=== PATIENT | male | born 1945 | race Caucasian/White ===

== ENCOUNTER 2021-01-09 10:20 | Emergency (ER) | payer MEDICARE ==
[2021-01-09 10:26] VITALS: RESP 18
[2021-01-09] MEDS ORDERED: SODIUM CHLORIDE 0.9% 500 ML 500 ML IV ONE (10:37)
[2021-01-09] MEDS ORDERED: ONDANSETRON 4 MG/2 ML VIAL IVP STA (10:37)
--- NOTE | 2021-01-09 10:40 | ED ---
Nausea/Vomiting/Diarrhea HPI - General Chief complaint: Nausea/Vomiting/Diarrhea Stated complaint: Nauseau Time Seen by Provider: 01/09/21 10:28 Source: patient, family Mode of arrival: ambulatory Limitations: no limitations - History of Present Illness Initial comments: 75-year-old male who does not endorse past medical history aside from a hernia repair presented to the emergency department today for chief complaint of nausea and generalized weakness and soem nasal congestion x 3-4 days. Patient states that for the past 3-4 days since Wednesday he has had some nausea and decreased appetite overall has felt weak and has had some nasal congestion. He denies chest pain shortness of breath chest pressure diaphoresis and jaw pain arm pain and paresthesias. He dnies leg swelling, blood in stool or vomit. Pt states he vomited Wednesday ans states that it was mostly "phlegm" he denies abdominal pain. Patient appears well nontoxic on arrival in no distress. - Related Data Home Medications Medication Instructions Recorded Confirmed Ibuprofen [Motrin Ib] 600 mg PO Q8H PRN 01/09/21 01/09/21 Previous Rx's Medication Instructions Recorded Ondansetron Odt [Zofran Odt] 4 mg PO Q8HR PRN 7 Days #21 tab 01/09/21 Allergies Allergy/AdvReac Type Severity Reaction Status Date / Time venom-wasp [wasp venom] Allergy Unknown Verified 01/09/21 11:15 Review of Systems ROS Statement: Those systems with pertinent positive or pertinent negative responses have been documented in the HPI. ROS Other: All systems not noted in ROS Statement are negative. Past Medical History Past Medical History: No Reported History History of Any Multi-Drug Resistant Organisms: None Reported Past Surgical History: Hernia Repair Past Psychological History: No Psychological Hx Reported Smoking Status: Never smoker Past Alcohol Use History: None Reported Past Drug Use History: None Reported General Exam - General Exam Comments Initial Comments: General: The patient is awake and alert, in no distress Eye: Pupils are equal, round and reactive to light, extra-ocular movements are intact. No nystagmus. There is normal conjunctiva bilaterally. No signs of icterus. Ears, nose, mouth and throat: There are moist mucous membranes and no oral lesions. Some nasal congestion. Neck: The neck is supple, there is no tenderness or JVD. Cardiovascular: There is a regular rate and rhythm. No murmur, rub or gallop is appreciated. Respiratory: Lungs are clear to auscultation, respirations are non-labored, breath sounds are equal. No wheezes, stridor, rales, or rhonchi. Gastrointestinal: Soft, non-distended, non-tender abdomen without masses or organomegaly noted. There is no rebound or guarding present. Musculoskeletal: Normal ROM, no tenderness. Strength 5/5. Sensation intact. Radial and DP pulses equal bilaterally 2+. Neurological: A&O x 3. CN II-XII intact grossly, There are no obvious motor or sensory deficits. Coordination appears grossly intact. Speech is normal. Skin: Skin is warm and dry and no rashes or lesions are noted. No LE edema. Psychiatric: Cooperative, appropriate mood & affect, normal judgment. Limitations: no limitations Course Vital Signs 01/09/21 01/09/21 01/09/21 10: 12:41 14:55 Temperature 98.1 F 98.4 F 98.9 F Pulse Rate 76 67 82 Respiratory 18 18 18 Rate Blood Pressure 128/82 119/80 114/76 O2 Sat by Pulse 95 95 95 Oximetry Medical Decision Making - Medical Decision Making 75-year-old male presenting for nausea lack of appetite nasal congestion. He is: Positive. Labs are stable. He appears well nontoxic he does not endorse any chest pain or shortness of breath. Patient is high risk given his advanced age he would like to go forward with the monoclonal antibodies after we di scussed the risk versus benefit. Patient was provided information packet to review prior to the infusion. Patient was monitored 1 hour after the infusion with no signs of adverse side effects and patient was discharged appearing well. Dr Bain agreeable to care plan. - Lab Data Result diagrams: 01/09/21 10:46 01/09/21 10:46 Lab Results 01/09/21 01/09/21 01/09/21 Range/Units 10:46 10:46 10:46 WBC 5.9 (3.8-10.6) k/uL RBC 5.15 (4.30-5.90) m/uL Hgb 15.3 (13.0-17.5) gm/dL Hct 46.5 (39.0-53.0) % MCV 90.2 (80.0-100.0) fL MCH 29.7 (25.0-35.0) pg MCHC 32.9 (31.0-37.0) g/dL RDW 13.8 (11.5-15.5) % Plt Count 286 (150-450) k/uL MPV 7.7 Neutrophils % 74 % Lymphocytes % 15 % Monocytes % 10 % Eosinophils % 0 % Basophils % 0 % Neutrophils # 4.4 (1.3-7.7) k/uL Lymphocytes # 0.9 L (1.0-4.8) k/uL Monocytes # 0.6 (0-1.0) k/uL Eosinophils # 0.0 (0-0.7) k/uL Basophils # 0.0 (0-0.2) k/uL Sodium 140 (137-145) mmol/L Potassium 3.9 (3.5-5.1) mmol/L Chloride 111 H (98-107) mmol/L Carbon Dioxide 19 L (22-30) mmol/L Anion Gap 10 mmol/L BUN 15 (9-20) mg/dL Creatinine 0.85 (0.66-1.25) mg/dL Est GFR (CKD-EPI)AfAm >90 (>60 ml/min/1.73 sqM) Est GFR (CKD-EPI)NonAf 84 (>60 ml/min/1.73 sqM) Glucose 112 H (74-99) mg/dL Calcium 8.3 L (8.4-10.2) mg/dL Magnesium 1.9 (1.6-2.3) mg/dL Total Bilirubin 0.7 (0.2-1.3) mg/dL AST 55 (17-59) U/L ALT 33 (4-49) U/L Alkaline Phosphatase 90 (38-126) U/L Troponin I <0.012 (0.000-0.034) ng/mL Total Protein 7.2 (6.3-8.2) g/dL Albumin 3.8 (3.5-5.0) g/dL Coronavirus (PCR) (Not Detectd) 01/09/21 Range/Units 10:46 WBC (3.8-10.6) k/uL RBC (4.30-5.90) m/uL Hgb (13.0-17.5) gm/dL Hct (39.0-53.0) % MCV (80.0-100.0) fL MCH (25.0-35.0) pg MCHC (31.0-37.0) g/dL RDW (11.5-15.5) % Plt Count (150-450) k/uL MPV Neutrophils % % Lymphocytes % % Monocytes % % Eosinophils % % Basophils % % Neutrophils # (1.3-7.7) k/uL Lymphocytes # (1.0-4.8) k/uL Monocytes # (0-1.0) k/uL Eosinophils # (0-0.7) k/uL Basophils # (0-0.2) k/uL Sodium (137-145) mmol/L Potassium (3.5-5.1) mmol/L Chloride (98-107) mmol/L Carbon Dioxide (22-30) mmol/L Anion Gap mmol/L BUN (9-20) mg/dL Creatinine (0.66-1.25) mg/dL Est GFR (CKD-EPI)AfAm (>60 ml/min/1.73 sqM) Est GFR (CKD-EPI)NonAf (>60 ml/min/1.73 sqM) Glucose (74-99) mg/dL Calcium (8.4-10.2) mg/dL Magnesium (1.6-2.3) mg/dL Total Bilirubin (0.2-1.3) mg/dL AST (17-59) U/L ALT (4-49) U/L Alkaline Phosphatase (38-126) U/L Troponin I (0.000-0.034) ng/mL Total Protein (6.3-8.2) g/dL Albumin (3.5-5.0) g/dL Coronavirus (PCR) Detected A (Not Detectd) Disposition Clinical Impression: Nausea & vomiting, COVID-19, Nasal congestion Disposition: HOME SELF-CARE Condition: Good Instructions (If sedation given, give patient instructions): Coronavirus Disease 2019 (COVID-19) Additional Instructions: Please use medication as discussed. Please follow-up with family doctor in the next 2 days. Monitor respiratory status at home, if develop shortness of breath please return to the ER. Please return to emergency room if the symptoms increase or worsen or for any other concerns. Prescriptions: Ondansetron Odt [Zofran Odt] 4 mg PO Q8HR PRN 7 Days #21 tab PRN Reason: Nausea Is patient prescribed a controlled substance at d/c from ED?: No Referrals: Marely Angeles MD [Primary Care Provider] - 1-2 days Time of Disposition: 12:03
[2021-01-09 11:12] LABS: Basophils % (A) 0 %; Eosinophils % (A) 0 %; HCT 46.5 % (39.0-53.0); HGB 15.3 gm/dL (13.0-17.5); Lymphocytes # (A) 0.9 k/uL (1.0-4.8); Lymphocytes % (A) 15 %; MCH 29.7 pg (25.0-35.0); MCHC 32.9 g/dL (31.0-37.0); MCV 90.2 fL (80.0-100.0); Mean Platelet Volume 7.7; Monocytes # (A) 0.6 k/uL (0-1.0); Monocytes % (A) 10 %; Neutrophils # (A) 4.4 k/uL (1.3-7.7); Neutrophils % (A) 74 %; Platelet Count 286 k/uL (150-450); RBC 5.15 m/uL (4.30-5.90); RDW 13.8 % (11.5-15.5); WBC 5.9 k/uL (3.8-10.6)
[2021-01-09 11:33] LABS: ALT 33 U/L (4-49); AST 55 U/L (17-59); African American GFR (CKD) >90 (>60 ml/min/1.73 sqM); Albumin 3.8 g/dL (3.5-5.0); Alkaline Phosphatase 90 U/L (38-126); Anion Gap 10 mmol/L; Blood Urea Nitrogen 15 mg/dL (9-20); Calcium 8.3 mg/dL (8.4-10.2); Carbon Dioxide 19 mmol/L (22-30); Chloride 111 mmol/L (98-107); Glucose 112 mg/dL (74-99); Magnesium 1.9 mg/dL (1.6-2.3); Non-African American GFR(CKD) 84 (>60 ml/min/1.73 sqM); Potassium 3.9 mmol/L (3.5-5.1); Sodium 140 mmol/L (137-145); Total Bilirubin 0.7 mg/dL (0.2-1.3); Total Protein 7.2 g/dL (6.3-8.2)
[2021-01-09] MEDS ORDERED: BAMLANIVIMAB 700 MG in SODIUM CHLORIDE 0.9% 50 ML IVPB ONE (13:00)
[2021-01-09 14:56] VITALS: BP 114/76; PULSE 82; TEMP 98.9
== END 2021-01-09 14:55 | disposition home or self-care (01) ==
LOC: EC 10:20
DX: U07.1 COVID-19 (principal); R11.2 Nausea with vomiting, unspecified; R09.81 Nasal congestion
CPT/HCPCS: 99284; 36415; 93005; 80053; 83735; 84484; 85025; 87635; 96374; 96375; J2405; Q0239

== ENCOUNTER → 2021-05-14 | Day surgery (SDC) | payer MEDICARE ==
[2021-05-12 15:41] VITALS: BMI 30.7
[~2021-05-14] MED LIST: DEXAMETHASONE SOD PHOSPHATE 4 MG/ML 1 ML VIAL IV ONE; HYDROmorphone 0.5 MG/0.5 ML SYRINGE IVP PRN; LACTATED RINGERS 1,000 ML IV SCH; LIDOCAINE 1% (10MG/ML) FOR IV START INTRADERMA PRN; LIDOCAINE 1% INJ 10MG/ML (20 ML MDV) ONE; MIDAZOLAM 2 MG/2 ML VIAL IVP ONE; ONDANSETRON 4 MG/2 ML VIAL IVP ONE; ONDANSETRON 4 MG/2 ML VIAL IVP PRN; PROPOFOL 10 MG/ML 20 ML VIAL IV ONE; ROPIVACAINE 5 MG/ML 30 ML VIAL ONE; SUCCINYLCHOLINE CHLORIDE 100 MG/5 ML SYR IV ONE; ePHEDrine SULFATE/0.9% NACL/PF 50 MG/5 ML SYRINGE IV ONE; fentaNYL (PF) 50 MCG/ML 2 ML AMP ONE
--- NOTE | 2021-05-14 12:54 | P.OP ---
Date of Procedure: 05/14/21 Preoperative Diagnosis: 1. Displaced lateral malleolar fracture left ankle 2. Possible disruption syndesmosis left ankle Postoperative Diagnosis: 1. Displaced lateral malleolar fracture left ankle 2. Disruption of syndesmosis left ankle Procedure(s) Performed: 1. Open reduction with internal fixation of the left lateral malleolus 2. Open reduction and fixation of the syndesmosis left ankle Implants: Arthrex 6-hole lateral malleolar plate, Arthrex tight rope Anesthesia: SANDRAA Surgeon: Bello Hollins Estimated Blood Loss (ml): 10 Pathology: none sent Condition: stable Disposition: PACU Operative Findings: Once the lateral malleolar fracture was stabilized and fixated stress fluoroscopy noted gapping of the tibia-fibula syndesmosis Description of Procedure: Prior to the patient being brought to the operative room anesthesia Mr. nerve block and left lower extremity. Patient is a broad Room placed on table supine position. Timeout was taken to confirm correct patient identifiers, correct procedure, correct site of surgery. When the room was in agreement the patient was induced and placed under general anesthesia. A well-padded tourniquet was placed the left thigh and a bump underneath the left hip to internally rotate the left leg. The left leg was then prepped and draped usual manner. Leg was exsanguinated the tourniquet inflated to 250 mmHg. Inches directed over the lateral ankle where a linear incision was made over the lateral malleolus. Incision was deepened down to the saphenous layer careful to identify voiding retract any neurovascular cauterize any bleeding vessels. The incision was then deepened down directly onto the lateral malleolus and the soft tissue reflected off the lateral malleolus. A large hematoma within the fracture site that was evacuated and removed. The fracture fragments were distracted and curetted to remove any hematoma or interposing soft tissue. Then reduction forceps were used to rotate and bring the fibular fracture back out to length and then clamped in place once it was reduced. Reduction was confirmed under fluoroscopy with AP oblique and lateral views. The drill for 3.0 cortical screw was then made from anterior to posterior perpendicular to the fracture. And then the screw was inserted and compressed the fracture well. The reduction clamps were removed and then a 6-hole precontoured lateral malleolar plate was positioned and adjusted under fluoroscopy and once position was satisfactory was held in place a threaded olive wires. Fluoroscopy was used to make sure that the alignment was unchanged and once confirmed 35 locking screws were inserted through the plate proximal to the fracture and 3.0 nonlocking cancellous screws were inserted distal to the fracture. The distal screw screws were placed under direct fluoroscopic visualization. Drilling was also done under fluoroscopic visualization so that didn't enter the ankle joint. Once reduction was completed the ankle was stressed under live fluoroscopy there appeared to be increased gapping at the syndesmosis and widening of the medial joint space. That point it was decided to apply a tight rope the drill hole was made through the plate 11 cm superior to the ankle joint. The drill was advanced from straight lateral to medial with slight were anterior angulation until the drill bit could be felt just deep to the skin on the medial side of the ankle. The Arthrex tight rope was inserted and advanced to the point where the button was clear of the tibial tibial cortex. The button was released and then it was adjusted until a wide flat against the tibia. That point the general foundry worker was removed large reduction forceps were then placed across ankle joint medial to lateral and clamped in place while holding the ankle maximally dorsiflexed and then while doing so the tight rope suture button was tightened laterally until all the slack was taken out. Then the reduction forceps was removed and then the ankle was again stressed and there was no gapping medially no apparent laxity the syndesmosis. The wound is then thoroughly irrigated. Deep closure done with 2-0 Vicryl. Skin closure done with 4-0 Monocryl and josafat. Dry sterile dressings applied as well as a bulky well molded plaster posterior mold sugar tong splint. The tourniquet was released and capillary refill return to all digits on the left foot. Above procedure and anesthesia well which dora very vital signs stable
[2021-05-14 12:58] VITALS: RESP 16; TEMP 97.9
--- NOTE | 2021-05-14 13:07 | XR ---
EXAMINATION TYPE: XR ankle limited LT DATE OF EXAM: 05/14/2021 COMPARISON: NONE HISTORY: ORIF TECHNIQUE: 3 views submitted FINDINGS: Postsurgical changes are seen. There is slight widening of the medial compartment of the an kle mortise with slight asymmetry of the ankle mortise. One of the orthopedic screws appears to be ou tside the fixation plate. Correlate clinically. IMPRESSION: Postsurgical changes
--- NOTE | 2021-05-14 13:08 | FL ---
EXAMINATION TYPE: FL guidance operating room DATE OF EXAM: 05/14/2021 HISTORY: Fluoroscopy time 43 seconds of fluoroscopy provided. IMPRESSION: 1. Fluoroscopy time.
[2021-05-14 13:41] VITALS: BP 145/86; PULSE 81
--- NOTE | 2021-05-14 16:14 | P.ANPRN ---
Procedure Note - Anesthesia - Nerve Block Performed Left Adductor Canal Time Out Performed: Yes (:) Date of Procedure: 05/14/21 Procedure Start Time: Procedure Stop Time: Location of Patient: PreOp Indication: Acute Post-Operative Pain, Requested by Surgeon (Dr Hollins) Sedation Type: Sedate with meaningful contact maintained Preparation: Sterile Prep Position: Supine Catheter: None Needle Types: Pajunk Needle Gauge: 21 Ultrasound used to visualize needle placement: Yes Ultrasound used to observe medication spread: Yes Injectate: 0.5% Ropivacaine (see comment for volume) (15cc + 5cc PFnormal saline) Blood Aspirated: No Pain Paresthesia on Injection Noted: No Resistance on Injection: Normal Image Stored and Saved: Yes Events: Uneventful and Well Tolerated
--- NOTE | 2021-05-14 16:16 | P.ANPRN ---
Procedure Note - Anesthesia - Nerve Block Performed Left Popliteal Time Out Performed: Yes Date of Procedure: 05/14/21 Procedure Start Time: 10: Procedure Stop Time: :31 Location of Patient: PreOp Indication: Acute Post-Operative Pain, Requested by Surgeon (Dr Hollins) Sedation Type: Sedate with meaningful contact maintained Preparation: Sterile Prep Position: Right Lateral Catheter: None Needle Types: Pajunk Needle Gauge: 21 Ultrasound used to visualize needle placement: Yes Ultrasound used to observe medication spread: Yes Injectate: 0.5% Ropivacaine (see comment for volume) (15cc + 5cc PF normal saline) Blood Aspirated: No Pain Paresthesia on Injection Noted: No Resistance on Injection: Normal Image Stored and Saved: Yes Events: Uneventful and Well Tolerated (popliteal fossa block)
== END | disposition home or self-care (01) ==
LOC: OR 09:04
PROVIDERS: ATTEND Podiatrist
DX: S82.62XA Displaced fracture of lateral malleolus of left fibula, initial encounter for closed fracture (principal); W22.8XXA Striking against or struck by other objects, initial encounter; Z79.52 Long term (current) use of systemic steroids; Z91.030 Bee allergy status
CPT/HCPCS: 64447; 64445; 76942; 73600; 27792; 28531; C1713; J2250; J1100; J0690; J2405; J2001; J3010; J2795; J0330; J2704

== ENCOUNTER 2024-01-03 11:47 | Inpatient (IN) | payer MEDICARE ==
[2024-01-03] MEDS: SODIUM CHLORIDE 0.9% 1,000 ML IV ONE (13:28)
[2024-01-03] MEDS ORDERED: VERAPAMIL 2.5 MG/ML 2 ML AMP ONE ×2 (13:36→13:53)
[2024-01-03] MEDS ORDERED: HEPARIN SODIUM 1,000 UN/ML (10ML VL) ONE (13:36)
[2024-01-03] MEDS: LIDOCAINE 1% INJ 10MG/ML (20 ML MDV) SQ ONE (13:59)
[2024-01-03] MEDS: MIDAZOLAM 2 MG/2 ML VIAL IVP ONE (14:00)
[2024-01-03] MEDS: HEPARIN SODIUM 1,000 UN/ML (10ML VL) IVP ONE (14:06)
[2024-01-03] MEDS: NITROGLYCERIN 1000MCG/10ML SYRINGE INTRACORON ONE (14:14)
[2024-01-03] MEDS: HEPARIN SODIUM 1,000 UN/ML (10ML VL) IV ONE ×2 (14:24→20:33)
[2024-01-03] MEDS: IOPAMIDOL-370 100ML BTL INJ ONE ×2 (14:28)
[2024-01-03] MEDS ORDERED: ALPRAZolam 0.5 MG TAB PO PRN (14:48)
[2024-01-03] MEDS ORDERED: ALPRAZolam 0.25 MG TAB PO PRN (14:48)
[2024-01-03] MEDS ORDERED: NITROGLYCERIN SL TABS 0.4 MG TAB SUBLINGUAL PRN (14:48)
[2024-01-03] MEDS ORDERED: TEMAZEPAM 15 MG CAP PO PRN (15:23)
[2024-01-03] MEDS: ATORVASTATIN 80 MG TAB PO STA (15:48)
[2024-01-03] MEDS: SODIUM CHLORIDE 0.9% 1,000 ML in EMPTY BAG 1 BAG IV SCH (15:48)
[2024-01-03] MEDS: ASPIRIN 325 MG TAB PO STA (15:48)
[2024-01-03 16:17] LABS: Basophils % (A) 0 %; Eosinophils % (A) 0 %; HGB 12.5 gm/dL (13.0-17.5); Lymphocytes # (A) 0.8 k/uL (1.0-4.8); Lymphocytes % (A) 7 %; MCH 30.1 pg (25.0-35.0); MCHC 32.9 g/dL (31.0-37.0); MCV 91.3 fL (80.0-100.0); Monocytes # (A) 0.3 k/uL (0-1.0); Monocytes % (A) 3 %; Neutrophils # (A) 11.1 k/uL (1.3-7.7); Neutrophils % (A) 90 %; Platelet Count 517 k/uL (150-450); RBC 4.16 m/uL (4.30-5.90); RDW 13.9 % (11.5-15.5); WBC 12.3 k/uL (3.8-10.6)
[2024-01-03 16:24] LABS: INR 1.3 (<1.2); Partial Thromboplastin Time 95.7 sec (22.0-30.0); Prothrombin Time 13.8 sec (10.0-12.5)
[2024-01-03] MEDS: ATORVASTATIN 80 MG TAB PO SCH (17:04)
[2024-01-03] MEDS: SODIUM CHLORIDE 0.9% 1,000 ML IV SCH (17:04)
[2024-01-03] MEDS ORDERED: HEPARIN SODIUM 1,000 UN/ML (10ML VL) IV PRN (20:00)
[2024-01-03] MEDS: HEPARIN SOD,PORK IN 0.45% NACL 25,000 UNIT in 0.45% NACL 1 250ML.BAG IV SCH (20:34)
--- NOTE | 2024-01-04 01:40 | CC ---
CARDIAC CATHETERIZATION REPORT PROCEDURES: 1. Coronary angiography. 2. IFR assessment of mid LAD lesion. PERFORMED BY: Dr. Rebecca Xavier. Moderate conscious sedation time was 41 minutes. The patient was administered Versed. Oxygen saturation, hemodynamics, and EKG were monitored closely. CLINICAL INFORMATION: Mr. Karthik Claudio is an 78-year-old gentleman without significant past medical history, on no prescription medications, came to [facility] yesterday morning with 2 bouts of chest pain suggestive of angina. EKG revealed nonspecific ST-T changes in the precordial leads. His troponin went up and the trend suggested [id number] MD. Echo revealed preserved systolic function. He was advised cardiac cath given his presentation and troponin elevation. Risks, benefits, options, and rationale were explained. The patient's insisted on going to [facility], but the patient wanted to have the procedure here, so this was performed at [facility] and I noted that he had a mid LAD lesion after 2 diagonal branches of about 50% to 55% with some haziness. I thought this may be a plaque rupture and recommended IFR assessment and brought him for the procedure here. The patient's was reluctant, but the patient insisted on coming to [facility] for IFR assessment and intervention and therefore he was brought here after due discussion. PROCEDURE NOTE: The existing 6-Ethiopian introducer in the right radial artery was used to perform the procedure. I used a JL3.5 guide catheter of 6-Ethiopian caliber to cannulate the left coronary artery. The patient received a total of 4000 units of heparin and ACT was about 186. Additional 1000 units of heparin was then given. I used a short straight omni wire. With this, I was able to advance and kept it in the [id number] LAD well beyond the lesion. The wire was appropriately zeroed and calibrated as per protocol. The guide catheter was pulled back and nitroglycerin was also given. Subsequently, after appropriate wait time, I performed the IFR assessment, 2 values were taken, both of these were normal at 0.99 and 0.98. I explained this to the patient and I then performed angiography of the right coronary artery with the standard right guide catheter of a JR4 catheter. This suggested that the right coronary had a 55% PDA lesion. It was a dominant vessel. PLV was larger. This was not angiographically significant. I noted that the LAD lesion as well as PDA lesion were both borderline. LAD had a lot of myocardium supplied by it. IFR was negative, not suggestive of this being a critical lesion, it is probably a moderate lesion. I am therefore recommending intravenous heparin, Plavix, aspirin, statin, and a small dose of beta-pankaj and we will observe him till Wednesday and if he does well, discharge him and perform a stress test or a repeat cardiac cath based on clinical picture as an outpatient. I discussed my thoughts in detail with the patient as well as his and also with Dr. Hernandez, who was rounding here. The patient was sent to the room in a stable condition. MMODL / IJN: [id number] /
[2024-01-04 03:05] LABS: Basophils % (A) 0 %; Eosinophils % (A) 0 %; Lymphocytes # (A) 1.6 k/uL (1.0-4.8); Lymphocytes % (A) 11 %; MCH 29.5 pg (25.0-35.0); MCHC 32.4 g/dL (31.0-37.0); MCV 91.1 fL (80.0-100.0); Mean Platelet Volume 8.3; Monocytes # (A) 1.3 k/uL (0-1.0); Monocytes % (A) 8 %; Neutrophils # (A) 12.5 k/uL (1.3-7.7); Neutrophils % (A) 80 %; Platelet Count 573 k/uL (150-450); WBC 15.6 k/uL (3.8-10.6)
[2024-01-04 03:16] LABS: African American GFR (CKD) 86 (>60 ml/min/1.73 sqM); Anion Gap 5 mmol/L; Blood Urea Nitrogen 23 mg/dL (9-20); Calcium 7.8 mg/dL (8.4-10.2); Carbon Dioxide 24 mmol/L (22-30); Chloride 110 mmol/L (98-107); Glucose 118 mg/dL (74-99); Non-African American GFR(CKD) 74 (>60 ml/min/1.73 sqM); Potassium 4.2 mmol/L (3.5-5.1); Sodium 139 mmol/L (137-145)
[2024-01-04] MEDS ORDERED: HEPARIN SODIUM,PORCINE (1 ML) 2,500 UNIT in SODIUM CHLORIDE 0.9% 250 ML IRRIGATION PRN (07:00)
[2024-01-04] MEDS ORDERED: HEPARIN SODIUM,PORCINE 10,000 UNIT in SODIUM CHLORIDE 0.9% 1,000 ML IRRIGATION PRN (07:00)
[2024-01-04 07:16] LABS: ALT 24 U/L (4-49); AST 28 U/L (17-59); African American GFR (CKD) 87 (>60 ml/min/1.73 sqM); Albumin 2.9 g/dL (3.5-5.0); Alkaline Phosphatase 79 U/L (38-126); Anion Gap 7 mmol/L; Blood Urea Nitrogen 22 mg/dL (9-20); Calcium 7.8 mg/dL (8.4-10.2); Carbon Dioxide 22 mmol/L (22-30); Chloride 109 mmol/L (98-107); Glucose 98 mg/dL (74-99); Non-African American GFR(CKD) 75 (>60 ml/min/1.73 sqM); Potassium 4.2 mmol/L (3.5-5.1); Sodium 138 mmol/L (137-145); Total Bilirubin 0.7 mg/dL (0.2-1.3); Total Protein 5.6 g/dL (6.3-8.2)
[2024-01-04] MEDS: CLOPIDOGREL 75 MG TAB PO SCH (08:57)
[2024-01-04] MEDS: METOPROLOL SUCCINATE (ER) 25 MG TAB.ER.24H PO SCH (08:57)
[2024-01-04] MEDS: ASPIRIN 81 MG PO SCH (08:57)
--- NOTE | 2024-01-04 12:50 | P.HPIM ---
History of Present Illness Patient is an 78-year-old male was transferred from [facility] for IFR assessment of mid LAD lesion which was not stented and patient was started on aspirin Plavix statin beta-pankaj. Patient was recently treated for pn eumonia completed a course of antibiotics and patient also has pulmonary fibrosis but not requiring any oxygen at this time. REVIEW OF SYSTEMS: CONSTITUTIONAL: No fever, no malaise, no fatigue. HEENT: No recent visual problems or hearing problems. Denied any sore throat. CARDIOVASCULAR: No chest pain, orthopnea, PND, no palpitations, no syncope. PULMONARY: No shortness of breath, no cough, no hemoptysis. GASTROINTESTINAL: No diarrhea, no nausea, no vomiting, no abdominal pain. NEUROLOGICAL: No headaches, no weakness, no numbness. HEMATOLOGICAL: Denies any bleeding or petechiae. GENITOURINARY: Denies any burning micturition, frequency, or urgency. MUSCULOSKELETAL/RHEUMATOLOGICAL: Denies any joint pain, swelling, or any muscle pain. ENDOCRINE: Denies any polyuria or polydipsia. The rest of the 14-point review of systems is negative. PHYSICAL EXAMINATION: GENERAL: The patient is alert and oriented x3, not in any acute distress. Well developed, well nourished. HEENT: Pupils are round and equally reacting to light. EOMI. No scleral icterus. No conjunctival pallor. Normocephalic, atraumatic. No pharyngeal erythema. No thyromegaly. CARDIOVASCULAR: S1 and S2 present. No murmurs, rubs, or gallops. PULMONARY: Chest is clear to auscultation, no wheezing or crackles. ABDOMEN: Soft, nontender, nondistended, normoactive bowel sounds. No palpable organomegaly. MUSCULOSKELETAL: No joint swelling or deformity. EXTREMITIES: No cyanosis, clubbing, or pedal edema. NEUROLOGICAL: Gross neurological examination did not reveal any focal deficits. SKIN: No rashes. 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 DVT prophylaxis: Ambulation Past Medical History Past Medical History: No Reported History Additional Past Medical History / Comment(s): COVID 03 FEBRUARY 2021 WITH A LINGERING ISSUE WITH DRY COUGH History of Any Multi-Drug Resistant Organisms: None Reported Past Surgical History: Hernia Repair Past Anesthesia/Blood Transfusion Reactions: No Reported Reaction Past Psychological History: No Psychological Hx Reported Smoking Status: Never smoker Past Alcohol Use History: None Reported Past Drug Use History: None Reported - Past Family History Mother Family Medical History: No Reported History Medications and Allergies Home Medications Medication Instructions Recorded Confirmed Type Levofloxacin [Levaquin] 500 mg PO DAILY 01/03/24 01/03/24 History predniSONE [Deltasone] 20 mg PO DAILY 01/03/24 01/03/24 History Allergies Allergy/AdvReac Type Severity Reaction Status Date / Time venom-wasp [wasp venom] Allergy Unknown Verified 01/03/24 15:43 Physical Exam Vitals: Vital Signs Temp Pulse Pulse Resp BP Pulse Ox 01/04/24 11:08 97.7 F 81 18 127/73 95 01/04/24 09:17 77 18 01/04/24 08:00 97.4 F L 77 18 139/80 96 01/04/24 04:00 97.9 F 63 19 129/77 96 01/04/24 02:00 68 18 01/04/24 00:00 98.0 F 68 19 109/67 94 L 01/03/24 20:00 97.9 F 78 18 119/63 94 L 01/03/24 17:12 70 115/68 96 01/03/24 16:42 67 117/69 96 01/03/24 16:12 67 117/69 96 01/03/24 16:00 86 126/87 95 01/03/24 15:42 76 121/60 92 L 01/03/24 15:27 77 125/64 94 L 01/03/24 13:31 97.6 F 64 18 114/63 98 Intake and Output 01/03/24 01/04/24 01/04/24 22:59 06:59 14:59 Intake Total 118 Output Total 200 Balance -200 118 Intake: Oral 118 Output: Urine 200 Other: Voiding Method Urinal Urinal # Voids 1 Results CBC & Chem 7: 01/04/24 02:41 01/04/24 05:57 Labs: Abnormal Lab Results - Last 24 Hours (Table) 01/03/24 01/03/24 01/04/24 Range/Units 15:57 15:57 02:41 WBC 12.3 H 15.6 H (3.8-10.6) k/uL RBC 4.16 L (4.30-5.90) m/uL Hgb 12.5 L (13.0-17.5) gm/dL Hct 38.0 L (39.0-53.0) % Plt Count 517 H 573 H (150-450) k/uL Neutrophils # 11.1 H 12.5 H (1.3-7.7) k/uL Lymphocytes # 0.8 L (1.0-4.8) k/uL Monocytes # 1.3 H (0-1.0) k/uL PT 13.8 H (10.0-12.5) sec INR 1.3 H (<1.2) APTT 95.7 H (22.0-30.0) sec Chloride (98-107) mmol/L BUN (9-20) mg/dL Glucose (74-99) mg/dL Calcium (8.4-10.2) mg/dL Total Protein (6.3-8.2) g/dL Albumin (3.5-5.0) g/dL 01/04/24 01/04/24 01/04/24 Range/Units 02:41 02:41 05:57 WBC (3.8-10.6) k/uL RBC (4.30-5.90) m/uL Hgb (13.0-17.5) gm/dL Hct (39.0-53.0) % Plt Count (150-450) k/uL Neutrophils # (1.3-7.7) k/uL Lymphocytes # (1.0-4.8) k/uL Monocytes # (0-1.0) k/uL PT (10.0-12.5) sec INR (<1.2) APTT 45.0 H (22.0-30.0) sec Chloride 110 H 109 H (98-107) mmol/L BUN 23 H 22 H (9-20) mg/dL Glucose 118 H (74-99) mg/dL Calcium 7.8 L 7.8 L (8.4-10.2) mg/dL Total Protein 5.6 L (6.3-8.2) g/dL Albumin 2.9 L (3.5-5.0) g/dL
--- NOTE | 2024-01-04 12:54 | P.PN ---
Subjective HISTORY OF PRESENT ILLNESS: Patient is status postcardiac catheterization yesterday with Dr. Xavier. Patient underwent IFR assessment of the mid LAD which was found to be nonischemic. Patient also had a 55% PDA lesion of the RCA. Medical management was recommended. Patient examined this morning at the bedside. Patient denies chest pain or pressure. He denies shortness of breath. Vital signs are stable. PHYSICAL EXAM: VITAL SIGNS: Reviewed. GENERAL: Well-developed in no acute distress. NECK: Supple. No JVD or thyromegaly LUNGS: Respirations even and unlabored. Lungs essentially clear to auscultation bilaterally. HEART: Regular rate and rhythm. S1 and S2 heard. EXTREMITIES: Normal range of motion. No clubbing or cyanosis. Peripheral pulses intact. 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 Xavier Continue dual antiplatelet therapy Continue high intensity statin Continue additional cardiac medications Continue IV heparin for an additional 24 hours Anticipate discharge home tomorrow if patient remains stable Further recommendations pending patient course Nurse practitioner note has been reviewed by physician. Signing provider agrees with the documented findings, assessment, and plan of care documented by COMMUNITY HEALTH OUTREACH WORKER as a scribe. Objective - Vital Signs Vital signs: Vital Signs Temp 97.9 F 01/04/24 04:00 Pulse 63 01/04/24 04:00 Resp 19 01/04/24 04:00 BP 129/77 01/04/24 04:00 Pulse Ox 96 01/04/24 04:00 FiO2 Intake & Output 01/03/24 01/04/24 01/04/24 18:59 06:59 18:59 Intake Total 350 118 Output Total 450 200 Balance -100 -200 118 Weight 97.976 kg Intake: IV 350 Oral 118 Output: Urine 450 200 Other: Voiding Method Urinal # Voids 1 1 - Labs CBC & Chem 7: 01/04/24 02:41 01/04/24 05:57 Labs: Abnormal Lab Results - Last 24 Hours (Table) 01/03/24 01/03/24 01/04/24 Range/Units 15:57 15:57 02:41 WBC 12.3 H 15.6 H (3.8-10.6) k/uL RBC 4.16 L (4.30-5.90) m/uL Hgb 12.5 L (13.0-17.5) gm/dL Hct 38.0 L (39.0-53.0) % Plt Count 517 H 573 H (150-450) k/uL Neutrophils # 11.1 H 12.5 H (1.3-7.7) k/uL Lymphocytes # 0.8 L (1.0-4.8) k/uL Monocytes # 1.3 H (0-1.0) k/uL PT 13.8 H (10.0-12.5) sec INR 1.3 H (<1.2) APTT 95.7 H (22.0-30.0) sec Chloride (98-107) mmol/L BUN (9-20) mg/dL Glucose (74-99) mg/dL Calcium (8.4-10.2) mg/dL Total Protein (6.3-8.2) g/dL Albumin (3.5-5.0) g/dL 01/04/24 01/04/24 01/04/24 Range/Units 02:41 02:41 05:57 WBC (3.8-10.6) k/uL RBC (4.30-5.90) m/uL Hgb (13.0-17.5) gm/dL Hct (39.0-53.0) % Plt Count (150-450) k/uL Neutrophils # (1.3-7.7) k/uL Lymphocytes # (1.0-4.8) k/uL Monocytes # (0-1.0) k/uL PT (10.0-12.5) sec INR (<1.2) APTT 45.0 H (22.0-30.0) sec Chloride 110 H 109 H (98-107) mmol/L BUN 23 H 22 H (9-20) mg/dL Glucose 118 H (74-99) mg/dL Calcium 7.8 L 7.8 L (8.4-10.2) mg/dL Total Protein 5.6 L (6.3-8.2) g/dL Albumin 2.9 L (3.5-5.0) g/dL
[2024-01-04 17:34] LABS: Chol/HDL Ratio 2.82 Ratio; LDL Cholesterol,Calculated 63.3 mg/dL (0.0-131.0); VLDL Calculation 15.38 mg/dL (5.00-40.00)
--- NOTE | 2024-01-04 17:39 | CA ---
Transthoracic Echo Report Name: Karthik Claudio Age: 78 Gender: M : 1945 Exam Date: 01/04/2024 14:23 Exam Location: [facility] Ht (in): 71 Wt (lb): 216 Ordering Physician: Mikki Rodríguez Attending/Referring Phys: [id number], [employer] Project Planner Mathieu Mathews RDCS Procedure CPT: Indications: LV function Cardiac Hx: Technical Quality: Contrast 1: Total Dose (mL): Contrast 2: Total Dose (mL): MEASUREMENTS (Male / Female) Normal Values 2D ECHO LV Diastolic Diameter PLAX 4.4 cm 4.2 - 5.9 / 3.9 - 5.3 cm LV Systolic Diameter PLAX 2.4 cm IVS Diastolic Thickness 1.0 cm 0.6 - 1.0 / 0.6 - 0.9 cm LVPW Diastolic Thickness 0.8 cm 0.6 - 1.0 / 0.6 - 0.9 cm LV Relative Wall Thickness 0.4 LVOT Diameter 2.2 cm Aortic Root Diameter 3.8 cm LA Systolic Diameter LX 3.7 cm 3.0 - 4.0 / 2.7 - 3.8 cm DOPPLER AV Peak Velocity 112.6 cm/s AV Peak Gradient 5.1 mmHg AV Mean Velocity 91.1 cm/s AV Mean Gradient 3.7 mmHg AV Velocity Time Integral 29.0 cm AI Peak Velocity 342.9 cm/s AI Peak Gradient 47.0 mmHg AI Pressure Half Time 463.9 ms LVOT Peak Velocity 109.9 cm/s LVOT Peak Gradient 4.8 mmHg LVOT Velocity Time Integral 23.7 cm LVOT Stroke Volume 91.7 cm??? LVOT Stroke Volume Index 42.1 ml/m??? AV Area Cont Eq vti 3.2 cm??? AV Area Cont Eq pk 3.8 cm??? MV Area PHT 3.3 cm??? Mitral E Point Velocity 80.4 cm/s Mitral A Point Velocity 95.5 cm/s Mitral E to A Ratio 0.8 MV Deceleration Time 232.5 ms TR Peak Velocity 251.4 cm/s TR Peak Gradient 25.3 mmHg PV Peak Velocity 61.3 cm/s PV Peak Gradient 1.5 mmHg FINDINGS Left Ventricle Left ventricular ejection fraction is estimated at 50-55 %. Mild left ventricular hypertrophy. Right Ventricle Prominent moderator band in right ventricle (normal variant). Unable to estimate the right ventricular systolic pressure. Right Atrium Normal right atrial size. Left Atrium Midl LA dilatation Mitral Valve Mild mitral regurgitation. Aortic Valve Mild aortic regurgitation. Tricuspid Valve Trace tricuspid regurgitation. Pulmonic Valve Trace to mild pulmonic regurgitation. Pericardium No pericardial effusion. Aorta Normal size aortic root and proximal ascending aorta. CONCLUSIONS Normal LV size and global LV systolic function. LVEF estimated at 55% No obvious regional wall motion abnormality Mild concentric LVH Mild RV dilatation. Normal systolic function. RVSP estimated 30 mmHg Mild MR. Mild LA dilatation Mild aortic regurgitation No pericardial effusion Previewed by: Dr Werner Clarke (Electronically Signed) Final Date: 04 January 2024 17:38
[2024-01-04 20:18] VITALS: TEMP 97.9
[2024-01-05 09:00] VITALS: BP 144/82; RESP 16
[2024-01-05] MEDS: ATORVASTATIN 40 MG TAB PO SCH (09:49)
[2024-01-05 11:02] VITALS: PULSE 85
--- NOTE | 2024-01-05 11:41 | P.PN ---
Subjective HISTORY OF PRESENT ILLNESS: Patient is status postcardiac catheterization yesterday with Dr. Xavier. Patient underwent IFR assessment of the mid LAD which was found to be nonischemic. Patient also had a 55% PDA lesion of the RCA. Medical management was recommended. Patient examined this morning at the bedside. Patient denies chest pain or pressure. He denies shortness of breath. Vital signs are stable. 01/05/2024 Patient examined this morning the bedside. Patient denies any chest pain or pressure. He denies any shortness of breath. Patient's IV heparin was discontinued this morning per Dr. Xavier. Echocardiogram completed revealing ejection fraction 50 to 55%, mild LVH, mild MR, and mild AR PHYSICAL EXAM: VITAL SIGNS: Reviewed. GENERAL: Well-developed in no acute distress. NECK: Supple. No JVD or thyromegaly LUNGS: Respirations even and unlabored. Lungs essentially clear to auscultation bilaterally. HEART: Regular rate and rhythm. S1 and S2 heard. EXTREMITIES: Normal range of motion. No clubbing or cyanosis. Peripheral pulses intact. 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 Xavier Nurse practitioner note has been reviewed by physician. Signing provider agrees with the documented findings, assessment, and plan of care documented by DOCUMENT MANAGEMENT SPECIALIST as a scribe. Objective - Vital Signs Vital signs: Vital Signs Temp 97.9 F 01/05/24 08:15 Pulse 85 01/05/24 09:40 Resp 16 01/05/24 09:40 BP 144/82 01/05/24 08:15 Pulse Ox 95 01/05/24 08:15 FiO2 Intake & Output 01/04/24 01/05/24 01/05/24 18:59 06:59 18:59 Intake Total 594 249.167 360 Balance 594 249.167 360 Intake: Intake, IV Titration 249.167 Amount Heparin Sod,Pork in 0.45% 249.167 NaCl 25,000 unit In 0.45 % NaCl 1 250ml.bag @ 10. 2065 UNITS/KG/HR 10 mls/ hr IV .Q24H [facility] Rx#: [id number] Oral 594 360 Other: Voiding Method Urinal Urinal Urinal # Voids 2 - Labs CBC & Chem 7: 01/04/24 02:41 01/04/24 05:57 Labs: Abnormal Lab Results - Last 24 Hours (Table) 01/05/24 01/05/24 Range/Units 03:39 06:24 APTT 54.9 H 50.3 H (22.0-30.0) sec
--- NOTE | 2024-01-07 17:40 | P.DS ---
Providers Date of admission: 01/03/24 14:20 Attending physician: Earl Barrientos Consults: 01/04/24 07:30 Consult Physician Routine Consulting Provider: Jaison Xavier Consult Reason/Comments: s/p cath Do you want consulting provider notified?: Already Contacted Primary care physician: Marely Angeles Hospital Course: Final Diagnosis -Acute non-ST elevation myocardial infarction -Coronary disease nonischemic LAD lesions on dual antiplatelet therapy -Completed antibiotic therapy for pneumonia -Pulmonary fibrosis not requiring any oxygen may not require any steroids pulmonary fibrosis may be related to allergens he is exposed due to his [employer] profession DVT prophylaxis: Ambulation Discharge Disposition Patient is stable for discharge home. Optimized on medical therapy for a nonischemic LAD lesions. Recommending pulmonary and cardiology follow up. Hospital Course Patient is an 78-year-old male was transferred from [facility] for IFR assessment of mid LAD lesion which was not stented found to be nonischemic, Patient also had a 55% PDA lesion of the RCA. Medical management was recommended and patient was started on aspirin, Plavix, statin, beta-pankaj. Patient denies chest pain or pressure. He denies shortness of breath. Vital signs are stable. Patient was recently treated for pneumonia completed a course of antibiotics and patient also has pulmonary fibrosis but not requiring any oxygen at this time. Echocardiogram completed revealing ejection fraction 50 to 55%, mild LVH, mild MR, and mild AR. He was cleared for DC home recommending to see cardiology and pulmonary on discharge. Please see medication reconciliation for a list of current medications. Thank you for allowing us to participate in the care of this patient. The impression and plan of care has been dictated by Kaylene Becerra, Nurse Practitioner as directed. Dr. Floyd MD I have performed a history and physical examination and medical decision making of this patient, discussed the same with the dictator, and agree with the dictators assessment and plan as written, documented as a scribe. Based on total visit time, I have performed more than 50% of this visit. Patient Condition at Discharge: Stable Plan - Discharge Summary New Discharge Prescriptions: New Aspirin 81 mg PO DAILY #90 tab Atorvastatin [Lipitor] 40 mg PO DAILY #90 tab Nitroglycerin Sl Tabs [Nitrostat] 0.4 mg SUBLINGUAL Q5M PRN #100 tab PRN Reason: Chest Pain Metoprolol Succinate (ER) [Toprol XL] 12.5 mg PO DAILY #90 tab Clopidogrel [Plavix] 75 mg PO DAILY #90 tab Discontinued predniSONE [Deltasone] 20 mg PO DAILY Levofloxacin [Levaquin] 500 mg PO DAILY Discharge Medication List Aspirin 81 mg PO DAILY #90 tab 01/05/24 [Rx] Atorvastatin [Lipitor] 40 mg PO DAILY #90 tab 01/05/24 [Rx] Clopidogrel [Plavix] 75 mg PO DAILY #90 tab 01/05/24 [Rx] Metoprolol Succinate (ER) [Toprol XL] 12.5 mg PO DAILY #90 tab 01/05/24 [Rx] Nitroglycerin Sl Tabs [Nitrostat] 0.4 mg SUBLINGUAL Q5M PRN #100 tab 01/05/24 [Rx] Follow up Appointment(s)/Referral(s): Jaison Xavier MD [STAFF PHYSICIAN] - 01/13/24 12:30 pm (Call for appointment on 01/12 at 1230) Marely Angeles MD [Primary Care Provider] - 01/06/24 12:40 pm Ebenezer Jeffrey MD [STAFF PHYSICIAN] - 02/01/24 8:45 am (Caddie to establish care for the pulmonary fibrosis) Ambulatory/Diagnostic Orders: Basic Metabolic Panel [LAB.AMB] Location: None Selected Complete Blood Count w/diff [LAB.AMB] Time Frame: 3 Days, Location: None Selected Patient Instructions/Handouts: *Surgery [facility] - After Heart Catheterization - [facility] Instructions Discharge Disposition: HOME SELF-CARE
== END 2024-01-05 15:08 | disposition home or self-care (01) | DRG 282 ==
LOC: 3SCARD 14:20
PROVIDERS: ADMIT Internal Medicine; ATTEND Internal Medicine
PROC: B2111ZZ Fluoroscopy of Multiple Coronary Arteries using Low Osmolar Contrast (ICD-10-PCS; principal; 2024-01-03 14:15)
PROC: 4A033BC Measurement of Arterial Pressure, Coronary, Percutaneous Approach (ICD-10-PCS; 2024-01-03 14:15)
DX: I21.4 Non-ST elevation (NSTEMI) myocardial infarction (principal); I25.110 Atherosclerotic heart disease of native coronary artery with unstable angina pectoris; I08.3 Combined rheumatic disorders of mitral, aortic and tricuspid valves; J84.10 Pulmonary fibrosis, unspecified; Z86.16 Personal history of COVID-19; Z87.01 Personal history of pneumonia (recurrent)
CPT/HCPCS: 80048; 80053; 80061; 82272; 85025; 85610; 85730; 93306; 93454; 93799

== ENCOUNTER 2024-04-30 01:28 | Emergency (ER) | payer MEDICARE ==
[2024-04-30 02:07] LABS: Basophils # (A) 0.1 k/uL (0-0.2); Basophils % (A) 1 %; Eosinophils # (A) 0.5 k/uL (0-0.7); Eosinophils % (A) 4 %; HCT 41.7 % (39.0-53.0); HGB 14.3 gm/dL (13.0-17.5); Lymphocytes # (A) 1.9 k/uL (1.0-4.8); Lymphocytes % (A) 15 %; MCHC 34.2 g/dL (31.0-37.0); MCV 93.5 fL (80.0-100.0); Mean Platelet Volume 8.2; Monocytes # (A) 1.2 k/uL (0-1.0); Monocytes % (A) 9 %; Neutrophils # (A) 8.9 k/uL (1.3-7.7); Neutrophils % (A) 69 %; Platelet Count 565 k/uL (150-450); RBC 4.46 m/uL (4.30-5.90); RDW 14.5 % (11.5-15.5); WBC 12.9 k/uL (3.8-10.6)
[2024-04-30 02:20] LABS: ALT 20 U/L (4-49); African American GFR (CKD) >90 (>60 ml/min/1.73 sqM); Amylase 82 U/L (30-110); Anion Gap 8 mmol/L; Blood Urea Nitrogen 21 mg/dL (9-20); Calcium 9.3 mg/dL (8.4-10.2); Carbon Dioxide 24 mmol/L (22-30); Chloride 110 mmol/L (98-107); Glucose 98 mg/dL (74-99); Lipase 85 U/L (23-300); Non-African American GFR(CKD) 80 (>60 ml/min/1.73 sqM); Sodium 142 mmol/L (137-145); Total Bilirubin 0.7 mg/dL (0.2-1.3); Total Protein 6.6 g/dL (6.3-8.2)
[2024-04-30 02:26] LABS: Potassium 4.5 mmol/L (3.5-5.1)
[2024-04-30 02:27] LABS: AST 31 U/L (17-59); Alkaline Phosphatase 75 U/L (38-126)
[2024-04-30 02:37] LABS: Appearance,Urine Clear (Clear); Bilirubin,Urine Negative (Negative); Blood,Urine Large (Negative); Color,Urine Yellow; Glucose,Urine (UA) Negative (Negative); Hyaline Casts,Urine 7 /lpf (0-2); Ketones,Urine Negative (Negative); Leukocyte Esterase,Urine Negative (Negative); Mucus,Urine Few /hpf; Nitrite,Urine Negative (Negative); Protein,Urine Trace (Negative); RBC,Urine >182 /hpf (0-5); Squamous Epithelial Cell,Urine 2 /hpf (0-4); Urobilinogen,Urine <2.0 mg/dL (<2.0); WBC,Urine 3 /hpf (0-5)
--- NOTE | 2024-04-30 02:43 | ED ---
General Adult HPI - General Chief complaint: Abdominal Pain Stated complaint: ABD Pain Time Seen by Provider: 04/30/24 02:16 Source: patient Mode of arrival: ambulatory Limitations: no limitations - History of Present Illness Initial comments: Dictation was produced using [employer] dictation software. please excuse any grammatical, word or spelling errors. Chief Complaint: 78-year-old male with history of kidney stones presents with left-sided flank pain History of Present Illness: Patient is 78-year-old male started to feel some crampy left-sided flank pain since earlier today. States that does not really feel like his kidney stones. Patient denies any significant comorbidities. Denies any fever, chills or night sweats. States that feels slightly episodic. Not associate with nausea. Denies any diarrhea. Patient having normal bowel movements. The ROS documented in this emergency department record has been reviewed and confirmed by me. Those systems with pertinent positive or negative responses have been documented in the HPI. All other systems are other negative and/or noncontributory. - Related Data Previous Rx's Medication Instructions Recorded Aspirin 81 mg PO DAILY #90 tab 01/05/24 Atorvastatin [Lipitor] 40 mg PO DAILY #90 tab 01/05/24 Clopidogrel [Plavix] 75 mg PO DAILY #90 tab 01/05/24 Metoprolol Succinate (ER) [Toprol 12.5 mg PO DAILY #90 tab 01/05/24 XL] Nitroglycerin Sl Tabs [Nitrostat] 0.4 mg SUBLINGUAL Q5M PRN #100 tab 01/05/24 Allergies Allergy/AdvReac Type Severity Reaction Status Date / Time venom-wasp [wasp venom] Allergy Unknown Verified 04/30/24 01:36 Review of Systems ROS Statement: Those systems with pertinent positive or pertinent negative responses have been documented in the HPI. ROS Other: All systems not noted in ROS Statement are negative. Past Medical History Past Medical History: No Reported History Additional Past Medical History / Comment(s): COVID 03 FEBRUARY 2021 WITH A LINGERING ISSUE WITH DRY COUGH History of Any Multi-Drug Resistant Organisms: None Reported Past Surgical History: Hernia Repair Past Anesthesia/Blood Transfusion Reactions: No Reported Reaction Past Psychological History: No Psychological Hx Reported Smoking Status: Never smoker Past Alcohol Use History: None Reported Past Drug Use History: None Reported - Past Family History Mother Family Medical History: No Reported History General Exam - General Exam Comments Initial Comments: PHYSICAL EXAM: General Impression: Alert and oriented x3, not in acute distress HEENT: Normocephalic atraumatic, extra-ocular movements intact, pupils equal and reactive to light bilaterally, mucous membranes moist. Cardiovascular: Heart regular rate and rhythm Chest: Able to complete full sentences, no retractions, no tachypnea Abdomen: abdomen soft, non-tender, non-distended, no organomegaly Musculoskeletal: Pulses present and equal in all extremities, no peripheral edema Motor: no focal deficits noted Neurological: CN II-XII grossly intact, no focal motor or sensory deficits noted Skin: Intact with no visualized rashes Psych: Normal affect and mood Limitations: no limitations Course Vital Signs 04/30/24 01:35 Temperature 97.7 F Pulse Rate 59 L Respiratory 18 Rate Blood Pressure 149/76 O2 Sat by Pulse 97 Oximetry Medical Decision Making - Medical Decision Making Was pt. sent in by a medical professional or institution (, PA, COMMERCIAL SUBCONTRACTOR, urgent care, hospital, or [facility]...) When possible be specific @ -No Did you speak to anyone other than the patient for history (EMS, parent, family, police, friend...)? What history was obtained from this source @ -No Did you review nursing and triage notes (agree or disagree)? Why? @ -I reviewed and agree with nursing and triage notes Were old charts reviewed (outside hosp., previous admission, EMS record, old EKG, old radiological studies, urgent care reports/EKG's, [facility] records)? Report findings @ -No old charts were reviewed Differential Diagnosis (chest pain, altered mental status, abdominal pain women, abdominal pain men, vaginal bleeding, musculoskeletal, weakness, fever, dyspnea, syncope, headache, dizziness, GI bleed, back pain, seizure, CVA, palpatations, mental health)? @ -Differential Abdominal Pain Men: Appendicitis, cholecystitis, diverticulosis, ischemic bowel, pancreatitis, hepatitis, UTI, gastroenteritis, AAA, incarcerated hernia, bowel obstruction, constipation, inflammatory bowel, hepatitis, peptic ulcer disease, splenic infarction, perforated viscus, testicular torsion, this is not meant to be an all-inclusive list EKG interpreted by me (3pts min.). @ -None done X-rays interpreted by me (1pt min.). @ -None done CT interpreted by me (1pt min.). @ -CT scan of the ab pelvis shows a 5 mm ureteral stone with mild hydronep hrosis. U/S interpreted by me (1pt. min.). @ -None done What testing was considered but not performed or refused? (CT, X-rays, U/S, labs)? Why? @ -None What meds were considered but not given or refused? Why? @ -None Was smoking cessation discussed for >3mins.? @ -No Were there social determinants of health that impacted care today? How? (Homelessness, low income, unemployed, alcoholism, drug addiction, transportation, low edu. Level, literacy, decrease access to med. care, nursing home, rehab)? @ -No Was there de-escalation of care discussed even if they declined (Discuss DNR or withdrawal of care, Hospice)? DNR status @ -No What co-morbidities impacted this encounter? (DM, HTN, Smoking, COPD, CAD, Cancer, CVA, ARF, Chemo, Hep., AIDS, mental health diagnosis, sleep apnea, morbid obesity)? @ -None Was patient admitted / discharged? Hospital course, mention meds given and route, prescriptions, significant lab abnormalities, going to OR and other pertinent info. @ -78-year-old male with history of kidney stones presents to the emergency department for flank pain that radiates to the groin. Patient states that he feels colicky in nature. Vital signs upon arrival are within acceptable limits. Laboratory evaluation obtained. Mild stress leukocytosis 12.9. CBC otherwise unremarkable. Metabolic panel is negative. Urinalysis shows greater than [address] shows a proximal ureteral stone with mild hydronephrosis. Patient refusing analgesics upon initial evaluation. Patient has a urologist. Patient agreeable for discharge. Is told to follow-up closely with urologist. Patient told to increase his fluid hydration. Did you discuss the management of the patient with other professionals (professionals i.e. , PA, COMMERCIAL SUBCONTRACTOR, lab, RT, psych nurse, aids social worker, social services technician, teacher, security flex utility officer, comp field case manager)? Give summary @ -No Was critical care preformed (if so, how long)? @ -No Undiagnosed new problem with uncertain prognosis? @ -No Drug Therapy requiring intensive monitoring for toxicity (Heparin, Nitro, Insulin, Cardizem)? @ -No Were any procedures done? @ -No Diagnosis/symptom? Acute, or Chronic, or Acute on Chronic? Uncomplicated (without systemic symptoms) or Complicated (systemic symptoms)? @ -Symptomatic nephrolithiasis Side effects of treatment? @ -No Exacerbation, Progression, or Severe Exacerbation? @ -No Poses a threat to life or bodily function? How? (Chest pain, USA, VT, pneumonia, PE, COPD, DKA, ARF, appy, cholecystitis, CVA, Diverticulitis, Homicidal, Suicidal, threat to staff... and all critical care pts) @ -yes - Lab Data Result diagrams: 04/30/24 01:39 04/30/24 01:39 Lab Results 04/30/24 04/30/24 04/30/24 Range/Units 01:39 01:39 01:39 WBC 12.9 H (3.8-10.6) k/uL RBC 4.46 (4.30-5.90) m/uL Hgb 14.3 (13.0-17.5) gm/dL Hct 41.7 (39.0-53.0) % MCV 93.5 (80.0-100.0) fL MCH 32.0 (25.0-35.0) pg MCHC 34.2 (31.0-37.0) g/dL RDW 14.5 (11.5-15.5) % Plt Count 565 H (150-450) k/uL MPV 8.2 Neutrophils % 69 % Lymphocytes % 15 % Monocytes % 9 % Eosinophils % 4 % Basophils % 1 % Neutrophils # 8.9 H (1.3-7.7) k/uL Lymphocytes # 1.9 (1.0-4.8) k/uL Monocytes # 1.2 H (0-1.0) k/uL Eosinophils # 0.5 (0-0.7) k/uL Basophils # 0.1 (0-0.2) k/uL Sodium 142 (137-145) mmol/L Potassium 4.5 (3.5-5.1) mmol/L Chloride 110 H (98-107) mmol/L Carbon Dioxide 24 (22-30) mmol/L Anion Gap 8 mmol/L BUN 21 H (9-20) mg/dL Creatinine 0.90 (0.66-1.25) mg/dL Est GFR (CKD-EPI)AfAm >90 (>60 ml/min/1.73 sqM) Est GFR (CKD-EPI)NonAf 80 (>60 ml/min/1.73 sqM) Glucose 98 (74-99) mg/dL Plasma Lactic Acid Gigi (0.7-2.0) mmol/L Calcium 9.3 (8.4-10.2) mg/dL Total Bilirubin 0.7 (0.2-1.3) mg/dL AST 31 (17-59) U/L ALT 20 (4-49) U/L Alkaline Phosphatase 75 (38-126) U/L Total Protein 6.6 (6.3-8.2) g/dL Albumin 4.0 (3.5-5.0) g/dL Amylase 82 (30-110) U/L Lipase 85 (23-300) U/L Urine Color Yellow Urine Appearance Clear (Clear) Urine pH 6.0 (5.0-8.0) Ur Specific [place] 1.020 (1.001-1.035) Urine Protein Trace H (Negative) Urine Glucose (UA) Negative (Negative) Urine Ketones Negative (Negative) Urine Blood Large H (Negative) Urine Nitrite Negative (Negative) Urine Bilirubin Negative (Negative) Urine Urobilinogen <2.0 (<2.0) mg/dL Ur Leukocyte Esterase Negative (Negative) Urine RBC >182 H (0-5) /hpf Urine WBC 3 (0-5) /hpf Ur Squamous Epith Cells 2 (0-4) /hpf Hyaline Casts 7 H (0-2) /lpf Urine Mucus Few H (None) /hpf 04/30/24 Range/Units 01:39 WBC (3.8-10.6) k/uL RBC (4.30-5.90) m/uL Hgb (13.0-17.5) gm/dL Hct (39.0-53.0) % MCV (80.0-100.0) fL MCH (25.0-35.0) pg MCHC (31.0-37.0) g/dL RDW (11.5-15.5) % Plt Count (150-450) k/uL MPV Neutrophils % % Lymphocytes % % Monocytes % % Eosinophils % % Basophils % % Neutrophils # (1.3-7.7) k/uL Lymphocytes # (1.0-4.8) k/uL Monocytes # (0-1.0) k/uL Eosinophils # (0-0.7) k/uL Basophils # (0-0.2) k/uL Sodium (137-145) mmol/L Potassium (3.5-5.1) mmol/L Chloride (98-107) mmol/L Carbon Dioxide (22-30) mmol/L Anion Gap mmol/L BUN (9-20) mg/dL Creatinine (0.66-1.25) mg/dL Est GFR (CKD-EPI)AfAm (>60 ml/min/1.73 sqM) Est GFR (CKD-EPI)NonAf (>60 ml/min/1.73 sqM) Glucose (74-99) mg/dL Plasma Lactic Acid Gigi 1.0 (0.7-2.0) mmol/L Calcium (8.4-10.2) mg/dL Total Bilirubin (0.2-1.3) mg/dL AST (17-59) U/L ALT (4-49) U/L Alkaline Phosphatase (38-126) U/L Total Protein (6.3-8.2) g/dL Albumin (3.5-5.0) g/dL Amylase (30-110) U/L Lipase (23-300) U/L Urine Color Urine Appearance (Clear) Urine pH (5.0-8.0) Ur Specific [place] (1.001-1.035) Urine Protein (Negative) Urine Glucose (UA) (Negative) Urine Ketones (Negative) Urine Blood (Negative) Urine Nitrite (Negative) Urine Bilirubin (Negative) Urine Urobilinogen (<2.0) mg/dL Ur Leukocyte Esterase (Negative) Urine RBC (0-5) /hpf Urine WBC (0-5) /hpf Ur Squamous Epith Cells (0-4) /hpf Hyaline Casts (0-2) /lpf Urine Mucus (None) /hpf Disposition Clinical Impression: Kidney stone Disposition: HOME SELF-CARE Condition: Good Instructions (If sedation given, give patient instructions): Kidney Stones (ED) Is patient prescribed a controlled substance at d/c from ED?: No Referrals: Armani Rose MD [STAFF PHYSICIAN] - 1-2 days Time of Disposition: 04:40
--- NOTE | 2024-04-30 04:03 | CT ---
EXAM: CT Abdomen and Pelvis Without Intravenous Contrast CLINICAL HISTORY: ITS.REASON CT Reason: flank pain TECHNIQUE: Axial computed tomography images of the abdomen and pelvis without intravenous contrast. CTDI is 12.6 mGy and DLP is 871.1 mGy-cm. This CT exam was performed using one or more of the following dose reduction techniques: automated exposure control, adjustment of the mA and/or kV according to patient size, and/or use of iterative reconstruction technique. COMPARISON: No relevant prior studies available. FINDINGS: Lung bases: Basilar interstitial fibrosis. No consolidation. Mediastinum: Small hiatal hernia. ABDOMEN: Liver: Unremarkable. Gallbladder and bile ducts: Unremarkable. No calcified stones. No ductal dilation. Pancreas: Unremarkable. No ductal dilation. Spleen: Unremarkable. No splenomegaly. Adrenals: Unremarkable. No mass. Kidneys and ureters: Obstructing 5 mm LEFT proximal ureter stone. Mild hydronephrosis of the LEFT kidney. No remaining renal stones. Stomach and bowel: Diverticulosis, without acute diverticulitis. No small bowel obstruction. No free intraperitoneal air. PELVIS: Appendix: No findings to suggest acute appendicitis. Bladder: Decompressed urinary bladder. No stones. Reproductive: Unremarkable as visualized. ABDOMEN and PELVIS: Intraperitoneal space: Unremarkable. No free air. No significant fluid collection. Bones/joints: Degenerative changes of the spine. No acute fracture. No dislocation. Soft tissues: Small fat-containing RIGHT and one hernia. Vasculature: Atherosclerotic changes of the aorta. No abdominal aortic aneurysm. Lymph nodes: Unremarkable. No enlarged lymph nodes. IMPRESSION: 1. Obstructing 5 mm LEFT proximal ureter stone. Mild hydronephrosis of the LEFT kidney. No remaining renal stones. 2. Basilar interstitial fibrosis. 3. Diverticulosis, without acute diverticulitis. No small bowel obstruction. No free intraperitoneal air.
[2024-04-30] MEDS: KETOROLAC 15 MG/ML 1 ML VIAL IVP STA (05:10)
[2024-04-30] MEDS: traMADol 50 MG STARTER PACK 3 TAB BTL PO STA (05:12)
[2024-04-30 06:26] VITALS: BP 135/88; PULSE 72; RESP 16; TEMP 97.3
== END 2024-04-30 05:19 | disposition home or self-care (01) ==
LOC: EC 01:28
DX: N13.2 Hydronephrosis with renal and ureteral calculous obstruction (principal); D72.829 Elevated white blood cell count, unspecified; Z91.038 Other insect allergy status; Z86.16 Personal history of COVID-19
CPT/HCPCS: 36415; 80053; 82150; 83605; 83690; 85025; 81001; 74176; 99284; 96374; J1885